=== PATIENT | female | born 1995 | race Caucasian/White ===

== ENCOUNTER 2019-08-07 02:38 | Emergency (ER) | payer OTHER ==
[~2019-08-07] VITALS: Ht 167.6 cm; Wt 54.4 kg
--- NOTE | 2019-08-07 02:45 | NUR ---
BIB FRIEND FOR C/O INABILITY TO BREATH. PT REPORTED FEELING TIGHTNESS IN HER THROAT. - COUGH, - FEVER. SATTING 100% ON R/A. PT ALSO SEEMED VERY ANXIOUS AND UNABLE TO STAY STILL. REPORTED ALLERGY TO PEANUTS AND CHEESE AND HAD A SLICE OF PIZZA WITH "PLANT BASED CHEESE" EARLIER TODAY. PT WAS PLACED ON A MONITOR .
[2019-08-07] MEDS ORDERED: diphenhydrAMINE HCL 50 MG/ML VIAL ONE (02:59)
[2019-08-07] MEDS ORDERED: ALBUTEROL FS 2.5 MG/3 ML VIAL.NEB NEB ONE (03:00)
[2019-08-07] MEDS ORDERED: LORAZEPAM 1 MG TABLET PO ONE (03:00)
[2019-08-07] MEDS ORDERED: LORAZEPAM 1 MG TABLET ONE (03:00)
[2019-08-07] MEDS ORDERED: diphenhydrAMINE HCL 50 MG/ML VIAL IM ONE (03:00)
[2019-08-07] MEDS ORDERED: ALBUTEROL FS 2.5 MG/3 ML VIAL.NEB ONE (03:08)
--- NOTE | 2019-08-07 03:10 | NUR ---
rt at the bed side for breathing tx. pt reported feeling much better and can breath. remained on heart monitor,
--- NOTE | 2019-08-07 03:25 | NUR ---
PT REPORTED FEELING MUCH BETTER. BREATHING EVENLY AND UNLABORES. NO SOB . AMBULATED TO BATHROOM .
--- NOTE | 2019-08-07 04:13 | NUR ---
Patient is resting comfortably in bed with eyes closed. Easily aroused. VSS
--- NOTE | 2019-08-07 04:37 | NUR ---
Patient is resting comfortably in bed with eyes closed. Easily aroused. breathing evenly w/ no s/s of distress. satting 97% on r/a. will cont to monitor ,
--- NOTE | 2019-08-07 05:10 | NUR ---
Patient discharged to home in stable condition. Rx and Written and verbal after care instructions given. Patient verbalizes understanding of instruction.
[2019-08-07 05:40] VITALS: BP 125/78
== END 2019-08-07 05:10 | disposition home or self-care (01) ==
LOC: ER 02:40
DX: T78.40XA Allergy, unspecified, initial encounter (principal); X58.XXXA Exposure to other specified factors, initial encounter; R06.02 Shortness of breath; Z91.010 Allergy to peanuts; E11.9 Type 2 diabetes mellitus without complications; R91.8 Other nonspecific abnormal finding of lung field
CPT/HCPCS: 71045; 82962; 96372; 99285; J1200